=== PATIENT | female | born 1980 | race Caucasian/White ===

== ENCOUNTER 2020-03-01 16:42 | Emergency (ER) | payer MEDICAID ==
[~2020-03-01] VITALS: Ht 104.1 cm; Wt 49.8 kg
[~2020-03-01 16:42] MED LIST: CITA20TA28 PO; CYCL-394 PO; FEXO-124 PO; FLUT16SP2 BOTHNARES; GUAI120015 PO; HYDR-2382 PO; IBUP-1984 PO; PRED10TA PO; PSEU-259 PO
[2020-03-01 17:19] VITALS: BP 115/69
[2020-03-01 18:09] LABS: CLARITY,URINE CLEAR (Clear); COLOR,URINE YELLOW (Yellow); GLUCOSE, URINE NEGATIVE (Neg); KETONES,URINE 40 mg/dl (Neg); LEUKOCYTE ESTERASE ,URINE NEGATIVE (Neg); NITRITES, URINE NEGATIVE (Neg); OCCULT BLOOD,URINE NEGATIVE (Neg); PH,URINE 6.5 (4.8-8.0); PROTEIN,URINE NEGATIVE (Neg)
[2020-03-01 18:13] LABS: UA COLLECTION TYPE CLN CATCH MIDSTREAM
== END 2020-03-01 19:12 | disposition home or self-care (01) ==
LOC: ER 16:44
DX: R10.84 Generalized abdominal pain (principal); J45.909 Unspecified asthma, uncomplicated; G89.29 Other chronic pain; M79.7 Fibromyalgia; M19.90 Unspecified osteoarthritis, unspecified site; Z59.0 Homelessness; Z79.899 Other long term (current) drug therapy
CPT/HCPCS: 81003; 99284

== ENCOUNTER → 2021-02-11 | Emergency (ER) | payer MEDICAID ==
[~2021-02-11] VITALS: Ht 121.9 cm; Wt 51.8 kg
[~2021-02-11] MED LIST changes: +NO HOME MEDS; +diphenhydrAMINE 25mg capsule PO ONE; +nicotine 21mg patch - 24 hr TD SCH
[2021-02-11 15:27] LABS: BASOPHILS % (AUTO) 0.6 % (0-1); EOSINOPHILS % (AUTO) 0.6 % (0-6); HEMATOCRIT 40.2 % (35.0-45.0); HEMOGLOBIN 13.8 g/dl (12.0-16.0); LYMPHOCYTES # (AUTO) 2.1 X10'3 (1.1-4.8); LYMPHOCYTES % (AUTO) 32.2 % (21-51); MEAN CORPUSCULAR HEMOGLOBIN 31.5 PG (27.0-31.0); MEAN CORPUSCULAR HGB CONC 34.3 g/dL (33.0-36.5); MEAN CORPUSCULAR VOLUME 91.9 FL (78-98); MEAN PLATELET VOLUME 8.4 FL (7.4-10.4); MONOCYTES # (AUTO) 0.4 X10'3 (0-0.9); MONOCYTES % (AUTO) 6.8 % (2-12); NEUTROPHILS # (AUTO) 3.9 X10'3 (1.8-7.7); NEUTROPHILS % (AUTO) 59.8 % (42-75); PLATELET COUNT 311 X10'3 (140-440); RED BLOOD COUNT 4.37 X10'6 (4.20-5.60); RED CELL DISTRIBUTION WIDTH 12.9 % (11.5-14.5); WHITE BLOOD COUNT 6.4 X10'3 (4.5-11.0)
[2021-02-11 15:38] LABS: ALANINE AMINOTRANSFERASE 17 U/L (12-78); ALBUMIN 3.7 G/DL (3.4-5.0); ALBUMIN/GLOBULIN RATIO 0.9 (1.1-1.5); ALKALINE PHOSPHATASE 55 IU/L (46-116); ANION GAP 10 (8-16); ASPARTATE AMINO TRANSFERASE 8 U/L (10-37); BILIRUBIN,TOTAL 0.2 MG/DL (0.1-1.0); BLOOD UREA NITROGEN 5 MG/DL (7-18); BUN/CREATININE RATIO 6.8 (6.6-38.0); CALCIUM 8.8 MG/DL (8.5-10.1); CHLORIDE 103 MMOL/L (99-107); CREATININE 0.73 MG/DL (0.40-0.90); GLUCOSE 103 MG/DL (70-104); POTASSIUM 3.5 MMOL/L (3.5-5.1); SODIUM 140 MMOL/L (135-145); TOTAL CARBON DIOXIDE 26.7 MMOL/L (24-32); TOTAL PROTEIN 7.7 G/DL (6.4-8.2); eGFR 89 ML/MIN
[2021-02-11 15:43] LABS: ETHANOL < 0.010 GM/DL (0.0-0.010)
[2021-02-11 17:19] LABS: URINE HCG NEGATIVE (NEG)
[2021-02-11 17:25] LABS: URINE AMPHETAMINE SCREEN NEGATIVE (Neg); URINE BARBITUATE SCREEN NEGATIVE (Neg); URINE BENZODIAZEPINES SCREEN NEGATIVE (Neg); URINE CANNABINOID SCREEN NEGATIVE (Neg); URINE COCAINE SCREEN NEGATIVE (Neg); URINE METHADONE SCREEN NEGATIVE (Neg); URINE OPIATE SCREEN NEGATIVE (Neg); URINE PHENCYCLIDINE SCREEN NEGATIVE (Neg)
--- NOTE | 2021-02-12 06:40 | NUR ---
RECEIVED PATIENT FROM MAIN ER. PATIENT AMBULATORY TO BED, STEADY GAIT. SHE IS HYPERVERBAL AT TIMES. PATIENT OBSERVED RESTING IN BED. RESPIRATIONS EVEN, UNLABORED. NO DISTRESS NOTED.
--- NOTE | 2021-02-12 08:30 | NUR ---
PATIENT AWAKE, ALERT, EATING BREAKFAST. NO DISTRESS OBSERVED.
--- NOTE | 2021-02-12 10:25 | NUR ---
ABEL NOLASCO, EVALUATED PATIENT AT THIS TIME. PATIENT NOTED TO BE A&O X4, COMMUNICATING APPROPRIATELY. 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 PATIENT DENIES SI/HI. SHE ADMITS TO FEELING DEPRESSED AND ANXIOUS. PATIENT ENDORSED THAT SHE "SHOULD HAVE NEVER SAID ANYTHING AND TOOK A CAB RIDE HOME". SHE IS NOTED SITTING ON THE EDGE OF HER BED STARING AT THE WALL. NO APPARENT DISTRESS. WILL CONTINUE TO MONITOR.
--- NOTE | 2021-02-12 12:30 | NUR ---
PATIENT AWAKE, ALERT, EATING LUNCH AT THIS TIME. 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 PATIENT CONTINUES TO PERSEVERATE ON LEAVING THE FACILITY, STATING THAT SHE HAS "TOO MANY MEDICAL PROBLEMS AND DOCTORS APPOINTMENTS TO BE HERE". NO DISTRESS OBSERVED.
[2021-02-12 13:28] LABS: CLARITY,URINE CLOUDY (Clear); COLOR,URINE YELLOW (Yellow); GLUCOSE, URINE NEGATIVE (Neg); KETONES,URINE NEGATIVE (Neg); LEUKOCYTE ESTERASE ,URINE SMALL (Neg); NITRITES, URINE NEGATIVE (Neg); OCCULT BLOOD,URINE NEGATIVE (Neg); PH,URINE 8.5 (4.8-8.0); PROTEIN,URINE NEGATIVE (Neg); UROBILINOGEN,URINE 0.2 E.U/dL (0.2-1.0)
[2021-02-12 13:29] LABS: UA COLLECTION TYPE CLN CATCH MIDSTREAM
[2021-02-12 13:36] LABS: SQUAMOUS EPITHELIAL CELL,UR MANY /LPF (FEW)
[2021-02-12 13:37] LABS: TRANSITIONAL EPI CELLS,URINE FEW /HPF
[2021-02-12 13:39] LABS: RBC,URINE 0-2 /HPF (0-2)
[2021-02-12 13:43] LABS: BACTERIA,URINE 3+ /HPF (Neg)
[2021-02-12 13:45] LABS: AMORPHOUS PHOSPHATES 1+
--- NOTE | 2021-02-12 14:37 | NUR ---
PATIENT NOTED SLEEPING IN BED AT THIS TIME. RESPIRATIONS EVEN, UNLABORED. NO S/S OF DISTRESS. WILL CONTINUE TO MONITOR.
--- NOTE | 2021-02-12 15:35 | NUR ---
RECEIVED PHONE CALL FROM [facility]. PATIENT HAS BEEN ACCEPTED. TO BE PICKED UP TODAY 02/12/21.
--- NOTE | 2021-02-12 16:34 | NUR ---
PATIENT IS OBSERVED SLEEPING IN BED AT THIS TIME. NO S/S OF DISTRESS.
[2021-02-12 17:31] VITALS: BP 126/80
--- NOTE | 2021-02-12 18:49 | NUR ---
Received pt resting in bed, dinner tray arrived, pt denies SI however states she does hear some background noise but denies all other MH symptoms.
--- NOTE | 2021-02-12 19:01 | NUR ---
Pt accepted at [facility], stud driver here to transport pt, security assisted pt out.
== END | disposition hospice, inpatient (51) ==
LOC: ER 14:43
DX: F31.10 Bipolar disorder, current episode manic without psychotic features, unspecified (principal); Z20.822 Contact with and (suspected) exposure to COVID-19; F22 Delusional disorders; R41.0 Disorientation, unspecified; J45.909 Unspecified asthma, uncomplicated; G89.29 Other chronic pain; Z59.00 Homelessness unspecified; Z79.899 Other long term (current) drug therapy
CPT/HCPCS: 36415; 80053; 80305; 80320; 81001; 81025; 85025; 87635; 99285; C9803; Q0163

== ENCOUNTER 2021-04-02 10:03 | Day surgery (SDC) | payer MEDICAID ==
[2021-03-19 11:43] LABS: BASOPHILS # (AUTO) 0.1 X10'3 (0-0.2); BASOPHILS % (AUTO) 0.9 % (0-1); EOSINOPHILS # (AUTO) 0.1 X10'3 (0-0.9); EOSINOPHILS % (AUTO) 0.8 % (0-6); LYMPHOCYTES # (AUTO) 2.4 X10'3 (1.1-4.8); LYMPHOCYTES % (AUTO) 26.5 % (21-51); MEAN CORPUSCULAR HEMOGLOBIN 31.7 PG (27.0-31.0); MEAN CORPUSCULAR HGB CONC 34.2 g/dL (33.0-36.5); MEAN CORPUSCULAR VOLUME 92.7 FL (78-98); MEAN PLATELET VOLUME 7.3 FL (7.4-10.4); MONOCYTES # (AUTO) 0.8 X10'3 (0-0.9); MONOCYTES % (AUTO) 8.3 % (2-12); NEUTROPHILS # (AUTO) 5.8 X10'3 (1.8-7.7); NEUTROPHILS % (AUTO) 63.5 % (42-75); PRE OP HEMATOCRIT 36.8 % (35.0-45.0); PRE OP HEMOGLOBIN 12.6 g/dL (12.0-16.0); PRE OP PLATELET COUNT 449 X10'3 (140-440); RED BLOOD COUNT 3.97 X10'6 (4.20-5.60); RED CELL DISTRIBUTION WIDTH 12.8 % (11.5-14.5)
[2021-03-19 11:51] LABS: CLARITY,URINE SLIGHTLY CLOUDY (Clear); COLOR,URINE YELLOW (Yellow); GLUCOSE, URINE NEGATIVE (Neg); KETONES,URINE NEGATIVE (Neg); LEUKOCYTE ESTERASE ,URINE SMALL (Neg); NITRITES, URINE NEGATIVE (Neg); OCCULT BLOOD,URINE NEGATIVE (Neg); PROTEIN,URINE NEGATIVE (Neg); UROBILINOGEN,URINE 0.2 E.U/dL (0.2-1.0)
[2021-03-19 12:00] LABS: UA COLLECTION TYPE CLN CATCH MIDSTREAM
[2021-03-19 12:01] LABS: BACTERIA,URINE 3+ /HPF (Neg); RBC,URINE NONE SEEN /HPF (0-2); SQUAMOUS EPITHELIAL CELL,UR MANY /LPF (FEW); WBC,URINE 20-30 /HPF (0-4)
[2021-03-19 12:06] LABS: ALBUMIN 3.3 G/DL (3.4-5.0); ALBUMIN/GLOBULIN RATIO 0.7 (1.1-1.5); ALKALINE PHOSPHATASE 62 IU/L (46-116); BLOOD UREA NITROGEN 8 MG/DL (7-18); CALCIUM 8.4 MG/DL (8.5-10.1); CHLORIDE 102 MMOL/L (99-107); CREATININE 0.57 MG/DL (0.40-0.90); PRE OP ALT 18 U/L (30-65); PRE OP ANION GAP 11 (8-16); PRE OP AST 15 U/L (10-37); PRE OP BILIRUB, TOTAL 0.2 MG/DL (0.0-1.0); PRE OP GLUCOSE 92 MG/DL (70-104); PRE OP POTASSIUM 3.8 MMOL/L (3.4-5.1); PRE OP SODIUM 136 MMOL/L (135-145); TOTAL CARBON DIOXIDE 22.8 MMOL/L (24-32); TOTAL PROTEIN 7.8 G/DL (6.4-8.2); eGFR > 90 ML/MIN
[2021-03-19 12:13] LABS: HCG SERUM QL NEGATIVE
[2021-04-02] VITALS (9 sets, daily range): BP systolic 98–110; BP diastolic 53–77
[~2021-04-02] VITALS: Ht 119.4 cm; Wt 55.3 kg
[~2021-04-02 10:03] MED LIST changes: +ACET325T55 PO; -CITA20TA28 PO; -CYCL-394 PO; -FEXO-124 PO; -FLUT16SP2 BOTHNARES; -GUAI120015 PO; -HYDR-2382 PO; +HYDR-3686 PO; -IBUP-1984 PO; -NO HOME MEDS; -PRED10TA PO; -PSEU-259 PO; +RISP90SU SQ; +SUMA25TA9 PO; +albuterol 2.5 MG/3 ML nebule NEB ONE; +cefazolin/dext.iso 2gm/50ml IV ONE; -diphenhydrAMINE 25mg capsule PO ONE; +famotidine 20mg tablet PO ONE; -nicotine 21mg patch - 24 hr TD SCH; +ringers solution, lacted 1,000 ML IV SCH
[2021-04-02] MEDS ORDERED: LIDOcaine 1% (10mg/ml) 2ml vial ONE (10:43)
[2021-04-02] MEDS ORDERED: TRAZ-256 PO (11:10)
[2021-04-02] MEDS ORDERED: morphine 2 MG/ML inj. syringe IV PRN (11:50)
[2021-04-02] MEDS ORDERED: meperidine/PF 25mg/ml syringe IV PRN ×3 (11:50)
[2021-04-02] MEDS ORDERED: ringers solution, lacted 1,000 ML IV SCH (11:50)
[2021-04-02] MEDS ORDERED: proCHLORperazine 10 MG/2 ml inj IV PRN (11:50)
[2021-04-02] MEDS ORDERED: ondansetron/PF 4mg/2ml inj IV PRN (11:50)
[2021-04-02] MEDS ORDERED: morphine 4 MG/ML inj SYRINge IV PRN (11:50)
[2021-04-02] MEDS ORDERED: BUPIVAcaine/PF 2.5 mg/ml (0.25%) 30ml vial ONE (12:31)
[2021-04-02] MEDS ORDERED: BUPIVAcaine/PF 2.5mg/ml (0.25%) 10ml vial ONE (12:31)
[2021-04-02] MEDS ORDERED: LIDOcaine 1% 30ml preserv. free vial ONE (12:31)
[2021-04-02] MEDS ORDERED: BUPIVACAINE liposomal/PF 13.3 MG/ML vial IM ONE (12:32)
[2021-04-02] MEDS ORDERED: fentaNYL/PF 50MCG/1 ML 2ML syringe ONE (12:35)
[2021-04-02] MEDS ORDERED: rocuronium 10mg/ml inj IV ONE (12:35)
[2021-04-02] MEDS ORDERED: midazolam 1 mg/ML 2ml injection ONE (12:35)
[2021-04-02] MEDS ORDERED: propofol inj 20 ML IV ONE (12:35)
[2021-04-02] MEDS ORDERED: dexamethasone sod phosphate 4mg/ml inj. ONE (13:15)
[2021-04-02] MEDS ORDERED: ondansetron/PF 4mg/2ml inj ONE (13:15)
[2021-04-02] MEDS ORDERED: neostigmine methylsulfate 1 MG/ML 10ml vial ONE (13:32)
[2021-04-02] MEDS ORDERED: glycopyrrolate 0.2mg/ml inj ONE (13:32)
--- NOTE | 2021-04-02 13:50 | NUR ---
Received from OR via [facility], accompanied by Anesthesiologist and report given by Anesthesiologist. PATIENT WAKING UP, NO S/S OF PAIN, V/S WNL, SCD ON, 20G TO LUE, LAP SURGICAL SITES TO ABDOMEN CDI.
[2021-04-02] MEDS ORDERED: oxyCODONE/APAP 5-325mg tablet PO PRN (13:55)
--- NOTE | 2021-04-02 14:50 | NUR ---
PATIENT A&OX4, DENIES PAIN, V/S WNL, SCD ON, 20G TO LUE, LAP SURGICAL SITES TO ABDOMEN CDI. . I HAVE REVIEWED D/C INSTRUCTIONS WITH PATIENT and they have verbalized understanding patient d/c home with all belongings and family gave transport home.
== END 2021-04-02 14:50 | disposition home or self-care (01) ==
LOC: PAS 10:03
PROVIDERS: ATTEND Surgery
DX: K43.9 Ventral hernia without obstruction or gangrene (principal); F41.9 Anxiety disorder, unspecified; M19.90 Unspecified osteoarthritis, unspecified site; J45.909 Unspecified asthma, uncomplicated; M06.9 Rheumatoid arthritis, unspecified; G40.909 Epilepsy, unspecified, not intractable, without status epilepticus; G47.30 Sleep apnea, unspecified; F44.81 Dissociative identity disorder; F31.9 Bipolar disorder, unspecified; G89.29 Other chronic pain; F17.210 Nicotine dependence, cigarettes, uncomplicated; F12.90 Cannabis use, unspecified, uncomplicated; Z72.89 Other problems related to lifestyle; Z20.822 Contact with and (suspected) exposure to COVID-19; Z98.890 Other specified postprocedural states; Z86.14 Personal history of Methicillin resistant Staphylococcus aureus infection; Z86.19 Personal history of other infectious and parasitic diseases; Z79.899 Other long term (current) drug therapy; Z83.3 Family history of diabetes mellitus; Z82.3 Family history of stroke; Z82.61 Family history of arthritis; Z83.2 Family history of diseases of the blood and blood-forming organs and certain disorders involving the immune mechanism; Z84.1 Family history of disorders of kidney and ureter
CPT/HCPCS: 36415; 49652; 64488; 71046; 80053; 81001; 82948; 84703; 85025; 87635; 93005; C1781; C9290; C9803; J0690; J1100; J2175; J2250; J2405; J2704; J2710; J3010; J3490; J7030; J7120; S2900; Z7506; Z7508; Z7512; A4215; A4618

== ENCOUNTER 2022-03-31 12:16 | Emergency (ER) | payer MEDICAID ==
[~2022-03-31] VITALS: Ht 119.4 cm; Wt 55.0 kg
[~2022-03-31 12:16] MED LIST changes: +TRAZ-256 PO; -albuterol 2.5 MG/3 ML nebule NEB ONE; -cefazolin/dext.iso 2gm/50ml IV ONE; -famotidine 20mg tablet PO ONE; -ringers solution, lacted 1,000 ML IV SCH
[2022-03-31 12:22] VITALS: BP 127/94
[2022-03-31 12:45] LABS: BASOPHILS # (AUTO) 0.1 X10'3 (0-0.2); BASOPHILS % (AUTO) 1.2 % (0-1); EOSINOPHILS # (AUTO) 0.1 X10'3 (0-0.9); EOSINOPHILS % (AUTO) 1.6 % (0-6); HEMATOCRIT 42.6 % (35.0-45.0); HEMOGLOBIN 14.2 g/dl (12.0-16.0); LYMPHOCYTES # (AUTO) 2.5 X10'3 (1.1-4.8); LYMPHOCYTES % (AUTO) 30.6 % (21-51); MEAN CORPUSCULAR HEMOGLOBIN 31.2 PG (27.0-31.0); MEAN CORPUSCULAR HGB CONC 33.2 g/dL (33.0-36.5); MEAN CORPUSCULAR VOLUME 93.8 FL (78-98); MEAN PLATELET VOLUME 8.1 FL (7.4-10.4); MONOCYTES # (AUTO) 0.7 X10'3 (0-0.9); NEUTROPHILS # (AUTO) 4.6 X10'3 (1.8-7.7); NEUTROPHILS % (AUTO) 57.6 % (42-75); PLATELET COUNT 332 X10'3 (140-440); RED BLOOD COUNT 4.54 X10'6 (4.20-5.60); RED CELL DISTRIBUTION WIDTH 13.5 % (11.5-14.5); WHITE BLOOD COUNT 8.1 X10'3 (4.5-11.0)
[2022-03-31 13:03] LABS: ALANINE AMINOTRANSFERASE 16 U/L (12-78); ALBUMIN 3.7 G/DL (3.4-5.0); ALBUMIN/GLOBULIN RATIO 0.9 (1.1-1.5); ALKALINE PHOSPHATASE 69 IU/L (46-116); ANION GAP 9 (8-16); ASPARTATE AMINO TRANSFERASE 17 U/L (10-37); BILIRUBIN,TOTAL 0.2 MG/DL (0.1-1.0); BLOOD UREA NITROGEN 11 MG/DL (7-18); BUN/CREATININE RATIO 14.3 (6.6-38.0); CALCIUM 8.3 MG/DL (8.5-10.1); CHLORIDE 105 MMOL/L (99-107); CREATININE 0.77 MG/DL (0.40-0.90); GLUCOSE 97 MG/DL (70-104); POTASSIUM 3.3 MMOL/L (3.5-5.1); SODIUM 140 MMOL/L (135-145); TOTAL CARBON DIOXIDE 26.5 MMOL/L (24-32); TOTAL PROTEIN 7.9 G/DL (6.4-8.2); eGFR 83 ML/MIN
== END 2022-03-31 14:04 | disposition home or self-care (01) ==
LOC: ER 12:16
DX: R20.2 Paresthesia of skin (principal); G43.909 Migraine, unspecified, not intractable, without status migrainosus; J45.909 Unspecified asthma, uncomplicated; G89.29 Other chronic pain; M54.50 Low back pain, unspecified; F31.9 Bipolar disorder, unspecified; F17.200 Nicotine dependence, unspecified, uncomplicated; Z98.890 Other specified postprocedural states; Z59.00 Homelessness unspecified
CPT/HCPCS: 36415; 71045; 80053; 83880; 84484; 85025; 93005; 99285